=== PATIENT | female | born 1995 | race Caucasian/White ===

== ENCOUNTER 2021-05-08 17:47 | Emergency (ER) | payer BC ==
[2021-05-08] MEDS: Albuterol/Ipratropium 3.0-0.5 MG/3 ML Neb Soln NEB ONE (18:05)
== END 2021-05-08 18:30 | disposition home or self-care (01) ==
LOC: LB.ED 17:47
DX: J06.9 Acute upper respiratory infection, unspecified (principal); H66.93 Otitis media, unspecified, bilateral; Z88.1 Allergy status to other antibiotic agents; Z88.8 Allergy status to other drugs, medicaments and biological substances; Z91.048 Other nonmedicinal substance allergy status
CPT/HCPCS: 36415; 71045; 80048; 85025; 99284-25; J7620-GY

== ENCOUNTER 2022-01-13 08:10 | Emergency (ER) | payer BC ==
[2022-01-13] MEDS ORDERED: Sodium Chloride 0.9% 1,000 ML IV ONE (09:42)
== END 2022-01-13 09:40 | disposition home or self-care (01) ==
LOC: LB.ED 08:10
DX: E86.0 Dehydration (principal); J45.909 Unspecified asthma, uncomplicated; M19.90 Unspecified osteoarthritis, unspecified site; Z88.1 Allergy status to other antibiotic agents; Z88.8 Allergy status to other drugs, medicaments and biological substances; Z91.048 Other nonmedicinal substance allergy status; Z79.899 Other long term (current) drug therapy
CPT/HCPCS: 36415; 80053; 81003; 81025; 85025; 96360; 99282; 99284-25; J7030

== ENCOUNTER 2022-08-17 01:21 | Emergency (ER) | payer OTHER ==
[2022-08-17] MEDS ORDERED: Albuterol/Ipratropium 3.0-0.5 MG/3 ML Neb Soln ONE (02:28)
[2022-08-17] MEDS ORDERED: Albuterol/Ipratropium 3.0-0.5 MG/3 ML Neb Soln NEB ONE (02:29)
[2022-08-17] MEDS ORDERED: Budesonide 0.5 MG/2 ML Neb Susp ONE (02:29)
[2022-08-17] MEDS ORDERED: Budesonide 0.5 MG/2 ML Neb Susp NEB ONE (02:30)
[2022-08-17 02:49] LABS: BASOPHILS ABSOLUTE AUTO 0.01 K/uL (0.02-0.10); BASOPHILS PERCENT AUTO 0.2 % (0.0-0.5); EOSINOPHILS ABSOLUTE AUTO 0.01 K/uL (0.04-0.40); EOSINOPHILS PERCENT AUTO 0.2 % (1.0-5.0); HEMATOCRIT 38.9 % (37.0-47.0); HEMOGLOBIN 13.4 g/dL (11.5-16.5); LYMPHOCYTES ABSOLUTE AUTO 2.42 K/uL (1.50-4.00); LYMPHOCYTES PERCENT AUTO 54.1 % (20.0-40.0); MEAN CORPUSCULAR HEMOGLOBIN 32.1 pg (27.0-32.0); MEAN CORPUSCULAR HGB CONC 34.4 g/dL (31.0-35.0); MEAN CORPUSCULAR VOLUME 93 fL (76-96); MEAN PLATELET VOLUME 9.2 fL (6.0-10.0); MONOCYTES ABSOLUTE AUTO 0.49 K/uL (0.20-0.80); NEUTROPHILS ABSOLUTE AUTO 1.54 K/uL (2.00-7.50); NEUTROPHILS PERCENT AUTO 34.5 % (45.0-70.0); PLATELET COUNT,PLT 223 K/uL (150-500); RED BLOOD CELL COUNT 4.17 M/uL (3.80-5.80); RED CELL DISTRIBUTION WIDTH 12.6 % (11.0-16.0); WHITE BLOOD CELL COUNT,WBC 4.5 K/uL (4.0-11.0)
[2022-08-17 03:14] LABS: A/G RATIO 1.1 (0.8-2.0); ALBUMIN 3.6 g/dL (3.4-5.0); ANION GAP 11.3 mmol/L (5.0-15.0); BILIRUBIN TOTAL 0.3 mg/dL (0.0-1.0); BUN/CREATININE RATIO 10.2 (6-25); CARBON DIOXIDE,CO2 28.4 mmol/L (21.0-32.0); CREATININE 0.88 mg/dL (0.55-1.02); EST CRCL DRUG DOSING (CG) 73.1 mL/min; POTASSIUM,K 3.7 mmol/L (3.5-5.1)
[2022-08-17] MEDS ORDERED: methylPREDNISolone Sodium Succinate 125 MG/2 ML SDV ONE (03:18)
[2022-08-17] MEDS ORDERED: methylPREDNISolone Sodium Succinate 125 MG/2 ML SDV IM ONE (03:19)
== END 2022-08-17 03:35 | disposition home or self-care (01) ==
LOC: LB.ED 01:21
DX: J21.9 Acute bronchiolitis, unspecified (principal); J45.909 Unspecified asthma, uncomplicated; Z88.8 Allergy status to other drugs, medicaments and biological substances; Z72.0 Tobacco use
CPT/HCPCS: 36415; 71045; 80053; 85025; 94640; 96372; 99283; 99284; J2930; J7620

== ENCOUNTER 2022-10-30 02:44 | Emergency (ER) | payer OTHER ==
[2022-10-30] MEDS ORDERED: Orphenadrine 60 MG/2 ML Inj IM ONE (03:08)
[2022-10-30] MEDS ORDERED: Ketorolac 60 MG/2 ML SDV IM ONE (03:10)
[2022-10-30] MEDS ORDERED: Cyclobenzaprine 10 MG Tab ONE (04:00)
== END 2022-10-30 04:07 | disposition home or self-care (01) ==
LOC: LB.ED 02:44
DX: G89.29 Other chronic pain (principal); M54.6 Pain in thoracic spine; Z88.8 Allergy status to other drugs, medicaments and biological substances; Z91.048 Other nonmedicinal substance allergy status; Z79.899 Other long term (current) drug therapy
CPT/HCPCS: 96372; 99283; A9270-GY; J1885; J2360

== ENCOUNTER 2022-11-07 19:04 | Emergency (ER) | payer OTHER | END 2022-11-07 19:53 | disposition home or self-care (01) | LOC: LB.ED 19:04 | DX: S93.401A Sprain of unspecified ligament of right ankle, initial encounter (principal); J45.909 Unspecified asthma, uncomplicated; Z88.8 Allergy status to other drugs, medicaments and biological substances; Z91.048 Other nonmedicinal substance allergy status; Z88.1 Allergy status to other antibiotic agents; Z79.899 Other long term (current) drug therapy; X50.1XXA Overexertion from prolonged static or awkward postures, initial encounter; Y92.096 Garden or yard of other non-institutional residence as the place of occurrence of the external cause | CPT/HCPCS: 73600-RT; 99283 ==

== ENCOUNTER 2022-12-21 19:51 | Emergency (ER) | payer OTHER ==
[2022-12-21 22:05] LABS: HEMATOCRIT 41.4 % (37.0-47.0); HEMOGLOBIN 14.4 g/dL (11.5-16.5); MEAN CORPUSCULAR HEMOGLOBIN 31.9 pg (27.0-32.0); MEAN CORPUSCULAR HGB CONC 34.8 g/dL (31.0-35.0); MEAN PLATELET VOLUME 9.6 fL (6.0-10.0); RED BLOOD CELL COUNT 4.51 M/uL (3.80-5.80); RED CELL DISTRIBUTION WIDTH 12.3 % (11.0-16.0); WHITE BLOOD CELL COUNT,WBC 8.1 K/uL (4.0-11.0)
[2022-12-21 22:08] LABS: AMPHETAMINES SCREEN, URINE NEGATIVE (NEGATIVE); BARBITURATE SCREEN,URINE NEGATIVE (NEGATIVE); BENZODIAZEPINES SCREEN,URINE NEGATIVE (NEGATIVE); METHADONE SCREEN, URINE NEGATIVE (NEGATIVE); METHAMPHETAMINES SCREEN, URINE NEGATIVE (NEGATIVE); OXYCODONE SCREEN,URINE NEGATIVE (NEGATIVE); THC SCREEN,URINE 50 NG/ML NEGATIVE (NEGATIVE)
[2022-12-21 22:25] LABS: ALANINE AMINOTRANSFERASE,ALT 39 U/L (12-78); ALKALINE PHOSPHATASE 70 U/L (46-116); ANION GAP 13.3 mmol/L (5.0-15.0); ASPARTATE AMNIOTRANSFERASE,AST 28 U/L (15-37); BILIRUBIN TOTAL 0.4 mg/dL (0.0-1.0); BLOOD UREA NITROGEN,BUN 9 mg/dL (8-26); CALCIUM 8.9 mg/dL (8.5-10.1); CARBON DIOXIDE,CO2 25.4 mmol/L (21.0-32.0); CHLORIDE,CL 102 mmol/L (98-107); CREATININE 0.75 mg/dL (0.55-1.02); EST CRCL DRUG DOSING (CG) 85.77 mL/min; ESTIMATED GFR 113 mL/min (>60); ETHANOL BLOOD MEDICAL < 3.0 mg/dL (<3.0); GLUCOSE RANDOM 101 mg/dL (74-100); POTASSIUM,K 3.7 mmol/L (3.5-5.1); SODIUM,NA 137 mmol/L (136-145)
[2022-12-21 22:39] LABS: APPEARANCE,URINE CLOUDY (CLEAR); BILIRUBIN,URINE NEGATIVE (NEGATIVE); COLOR,URINE YELLOW; GLUCOSE,URINE NEGATIVE (NEGATIVE); KETONES,URINE NEGATIVE (NEGATIVE); LEUKOCYTE ESTERASE,URINE SMALL (NEGATIVE); NITRITE,URINE NEGATIVE (NEGATIVE); OCCULT BLOOD,URINE SMALL (NEGATIVE); PH,URINE 5.5 (5.0-8.0); PROTEIN,URINE TRACE mg/dL (NEGATIVE); UROBILINOGEN,URINE 0.2 E.U./dL (0.2-1.0)
[2022-12-21 22:45] LABS: AMORPHOUS SEDIMENT,URINE MODERATE /HPF; BACTERIA,URINE FEW /HPF; RBC,URINE 0-5 /HPF; SQUAMOUS EPITHELIAL CELLS,UR MANY /HPF
== END 2022-12-21 23:47 | disposition home or self-care (01) ==
LOC: LB.ED 19:51
DX: F31.81 Bipolar II disorder (principal); F32.89 Other specified depressive episodes; F41.9 Anxiety disorder, unspecified; F17.210 Nicotine dependence, cigarettes, uncomplicated; Z88.8 Allergy status to other drugs, medicaments and biological substances; Z88.1 Allergy status to other antibiotic agents; Z79.899 Other long term (current) drug therapy
CPT/HCPCS: 36415; 80053; 80307; 81001; 81025; 84443; 85027; 99284; A9270-GY

== ENCOUNTER 2023-01-23 05:17 | Emergency (ER) | payer OTHER ==
[2023-01-23] MEDS: Silver Nitrate Applicator Each TOP ONE (06:57)
== END 2023-01-23 07:12 | disposition home or self-care (01) ==
LOC: LB.ED 05:17
DX: R04.0 Epistaxis (principal); Z88.8 Allergy status to other drugs, medicaments and biological substances
CPT/HCPCS: 30901; 99282; 99283-25

== ENCOUNTER 2023-03-21 23:39 | Emergency (ER) | payer OTHER ==
[2023-03-21] MEDS ORDERED: Sodium Chloride 0.9% 10 ML Syringe FLUSH PRN (23:54)
[2023-03-21] MEDS ORDERED: Sodium Chloride 0.9% 1,000 ML IV ONE (23:54)
[2023-03-22 00:19] LABS: BASOPHILS ABSOLUTE AUTO 0.01 K/uL (0.02-0.10); BASOPHILS PERCENT AUTO 0.1 % (0.0-0.5); EOSINOPHILS ABSOLUTE AUTO 0.11 K/uL (0.04-0.40); EOSINOPHILS PERCENT AUTO 1.6 % (1.0-5.0); HEMATOCRIT 40.6 % (37.0-47.0); HEMOGLOBIN 13.9 g/dL (11.5-16.5); LYMPHOCYTES ABSOLUTE AUTO 2.52 K/uL (1.50-4.00); LYMPHOCYTES PERCENT AUTO 37.7 % (20.0-40.0); MEAN CORPUSCULAR HEMOGLOBIN 31.5 pg (27.0-32.0); MEAN CORPUSCULAR HGB CONC 34.2 g/dL (31.0-35.0); MEAN CORPUSCULAR VOLUME 92 fL (76-96); MEAN PLATELET VOLUME 8.6 fL (6.0-10.0); MONOCYTES ABSOLUTE AUTO 0.41 K/uL (0.20-0.80); MONOCYTES PERCENT AUTO 6.1 % (3.0-10.0); NEUTROPHILS ABSOLUTE AUTO 3.64 K/uL (2.00-7.50); NEUTROPHILS PERCENT AUTO 54.5 % (45.0-70.0); PLATELET COUNT,PLT 398 K/uL (150-500); RED BLOOD CELL COUNT 4.41 M/uL (3.80-5.80); RED CELL DISTRIBUTION WIDTH 13.5 % (11.0-16.0); WHITE BLOOD CELL COUNT,WBC 6.7 K/uL (4.0-11.0)
== END 2023-03-22 01:05 | disposition home or self-care (01) ==
LOC: LB.ED 23:39
DX: N93.8 Other specified abnormal uterine and vaginal bleeding (principal); J45.909 Unspecified asthma, uncomplicated; K21.9 Gastro-esophageal reflux disease without esophagitis; E66.9 Obesity, unspecified; Z68.33 Body mass index [BMI] 33.0-33.9, adult; Z88.8 Allergy status to other drugs, medicaments and biological substances; Z91.018 Allergy to other foods; Z91.09 Other allergy status, other than to drugs and biological substances; Z79.899 Other long term (current) drug therapy
CPT/HCPCS: 36415; 84702; 85025; 96360; 99283; 99284-25; A9270-GY; J7030

== ENCOUNTER 2023-04-11 17:18 | Emergency (ER) | payer OTHER | END 2023-04-11 18:45 | disposition home or self-care (01) | LOC: LB.ED 17:18 | DX: B34.8 Other viral infections of unspecified site (principal); F17.210 Nicotine dependence, cigarettes, uncomplicated; E66.9 Obesity, unspecified; Z79.899 Other long term (current) drug therapy; Z88.8 Allergy status to other drugs, medicaments and biological substances; Z91.018 Allergy to other foods; Z68.33 Body mass index [BMI] 33.0-33.9, adult | CPT/HCPCS: 99284 ==

== ENCOUNTER 2023-05-14 02:16 | Emergency (ER) | payer OTHER ==
[2023-05-14] MEDS ORDERED: Ketorolac 60 MG/2 ML SDV IM ONE (03:31)
[2023-05-14] MEDS ORDERED: Ketorolac 60 MG/2 ML SDV ONE (03:35)
[2023-05-14] MEDS ORDERED: Lidocaine 5% 700 MG Patch TOP ONE (03:37)
== END 2023-05-14 03:50 | disposition home or self-care (01) ==
LOC: LB.ED 02:16
DX: M62.838 Other muscle spasm (principal); J45.909 Unspecified asthma, uncomplicated; K21.9 Gastro-esophageal reflux disease without esophagitis; F17.210 Nicotine dependence, cigarettes, uncomplicated; E66.9 Obesity, unspecified; Z68.33 Body mass index [BMI] 33.0-33.9, adult; Z91.018 Allergy to other foods; Z91.048 Other nonmedicinal substance allergy status; Z88.8 Allergy status to other drugs, medicaments and biological substances; Z79.899 Other long term (current) drug therapy
CPT/HCPCS: 81025; 96372; 99283; A9270-GY; J1885